=== PATIENT | female | born 1950 | race Caucasian/White ===

== ENCOUNTER 2020-12-10 16:09 | Emergency (ER) | payer MEDICARE ==
[2021-02-04] MEDS ORDERED: METFORMIN HCL500 MG PO (14:42)
[2021-02-04] MEDS ORDERED: REQUIP0.25 M1 PO (14:44)
[2021-02-04] MEDS ORDERED: PEPCID AC20 MG PO (14:45)
[2021-02-04] MEDS ORDERED: PHENERGAN25 M1 PO (14:45)
[2021-02-26] MEDS ORDERED: PERCOCET 5-3251 EACH PO (13:50)
== END 2020-12-10 16:58 | disposition home or self-care (01) ==
LOC: FER 16:09
DX: H11.31 Conjunctival hemorrhage, right eye (principal); E11.9 Type 2 diabetes mellitus without complications; Z88.0 Allergy status to penicillin; Z88.7 Allergy status to serum and vaccine; Z79.84 Long term (current) use of oral hypoglycemic drugs
CPT/HCPCS: 99283

== ENCOUNTER 2021-01-15 19:07 | Emergency (ER) | payer MEDICARE ==
[2021-01-15 19:42] LABS: BASOPHIL 0.4 % (0-2); EOSINOPHIL 1.6 % (0-7); HCT 44.4 % (37.0-47.0); HGB 14.5 g/dl (12.5-16.0); LYMPHOCYTE 19.9 % (15-48); MCH 28.7 pg (25.0-31.0); MCHC 32.7 g/dL (32.0-36.0); MCV 87.7 fL (78.0-100.0); MONOCYTE 4.9 % (0-12); MPV 8.8 fL (6.0-9.5); NEUTROPHIL 72.7 % (41-80); NRBC 0; PLT 239 K/uL (150-400); RBC 5.06 M/uL (4.20-5.40); RDW 13.3 % (11.5-14.0); WBC 7.7 K/uL (4.0-10.5)
[2021-01-15 19:49] LABS: INR 1.02 (0.9-1.2); PROTHROMBIN TIME 12.7 SECONDS (11.4-13.6); PTT 27.3 SECONDS (22.2-34.7)
[2021-01-15 19:57] LABS: ALBUMIN 3.9 g/dL (3.4-5.0); BILIRUBIN - TOTAL 0.7 mg/dL (0.2-1.0); BUN/CREAT RATIO (CALC) 15.6 RATIO; CREATININE 0.96 mg/dL (0.51-0.95); GLOBULIN (CALCULATION) 3.7 g/dL; POTASSIUM 3.9 mmol/L (3.5-5.1); TOTAL PROTEIN 7.6 g/dL (6.4-8.2)
[2021-02-04] MEDS ORDERED: METFORMIN HCL500 MG PO (14:42)
[2021-02-04] MEDS ORDERED: REQUIP0.25 M1 PO (14:44)
[2021-02-04] MEDS ORDERED: PHENERGAN25 M1 PO (14:45)
[2021-02-04] MEDS ORDERED: PEPCID AC20 MG PO (14:45)
[2021-02-26] MEDS ORDERED: PERCOCET 5-3251 EACH PO (13:50)
== END 2021-01-15 22:35 | disposition home or self-care (01) ==
LOC: FER 19:07
PROVIDERS: Emergency Medicine
DX: R07.89 Other chest pain (principal); F41.9 Anxiety disorder, unspecified; E11.9 Type 2 diabetes mellitus without complications; Z88.0 Allergy status to penicillin; Z88.7 Allergy status to serum and vaccine; Z79.84 Long term (current) use of oral hypoglycemic drugs
CPT/HCPCS: 36415; 71045; 80053; 84484; 85025; 85610; 85730; 93005

== ENCOUNTER → 2021-02-26 | Day surgery (SDC) | payer OTHER ==
[~2021-02-26] MED LIST: METFORMIN HCL500 MG PO; PEPCID AC20 MG PO; PERCOCET 5-3251 EACH PO; PHENERGAN25 M1 PO; REQUIP0.25 M1 PO
[2021-02-26 11:11] LABS: HCT 41.8 % (37.0-47.0); MCH 29.4 pg (25.0-31.0); MCHC 33.5 g/dL (32.0-36.0); MCV 87.6 fL (78.0-100.0); MPV 9.5 fL (6.0-9.5); RBC 4.77 M/uL (4.20-5.40); RDW 13.7 % (11.5-14.0); WBC 6.3 K/uL (4.0-10.5)
[2021-02-26 11:58] LABS: ALBUMIN 3.8 g/dL (3.4-5.0); BILIRUBIN - TOTAL 0.7 mg/dL (0.2-1.0); BUN/CREAT RATIO (CALC) 21.8 RATIO; CREATININE 0.87 mg/dL (0.51-0.95); GLOBULIN (CALCULATION) 3.4 g/dL; TOTAL PROTEIN 7.2 g/dL (6.4-8.2)
== END | disposition home or self-care (01) ==
LOC: FAS 02-12 10:45
PROVIDERS: Orthopaedic Surgery
DX: M75.112 Incomplete rotator cuff tear or rupture of left shoulder, not specified as traumatic (principal); M75.52 Bursitis of left shoulder; E11.9 Type 2 diabetes mellitus without complications; E78.00 Pure hypercholesterolemia, unspecified; K21.9 Gastro-esophageal reflux disease without esophagitis; Z88.0 Allergy status to penicillin; Z88.7 Allergy status to serum and vaccine; Z79.84 Long term (current) use of oral hypoglycemic drugs; Z79.899 Other long term (current) drug therapy
CPT/HCPCS: 36415; 71045; 80053; J0171; J1100; J2250; J2704; J2710; J2795; J3010; J3370; J7050; J7120

== ENCOUNTER 2022-03-17 08:26 | Emergency (ER) | payer OTHER | END 2022-03-17 10:09 | disposition home or self-care (01) | LOC: FER 08:26 | DX: T59.811A Toxic effect of smoke, accidental (unintentional), initial encounter (principal); Z88.0 Allergy status to penicillin; Z88.7 Allergy status to serum and vaccine; Y92.810 Car as the place of occurrence of the external cause; Z28.310 Unvaccinated for COVID-19 | CPT/HCPCS: 99283 ==